=== PATIENT | male | born 1985 | race Caucasian/White ===

== ENCOUNTER 2016-08-13 06:37 | Emergency (ER) | payer OTHER | END 2016-08-13 08:58 | disposition home or self-care (01) | LOC: ER1 06:37 | DX: L23.9 Allergic contact dermatitis, unspecified cause (principal); F17.200 Nicotine dependence, unspecified, uncomplicated | CPT/HCPCS: 96372; 99282; J1885 ==

== ENCOUNTER 2021-01-30 17:01 | Emergency (ER) | payer OTHER ==
[~2021-01-30 17:01] MED LIST: CLEOCIN HCL300 MG PO; CORTIZONE-1057 GM TP; VIBRAMYCIN100 MG PO
== END 2021-01-30 18:30 | disposition home or self-care (01) ==
LOC: ER1 17:01
DX: J06.9 Acute upper respiratory infection, unspecified (principal); F17.210 Nicotine dependence, cigarettes, uncomplicated; Z20.822 Contact with and (suspected) exposure to COVID-19
CPT/HCPCS: 87081; 87880; 99284; U0003

== ENCOUNTER 2021-02-01 11:05 | Emergency (ER) | payer OTHER ==
[2021-02-01 12:21] LABS: HEMOGLOBIN 14.2 gm/dl (14.0-17.5); RED BLOOD COUNT 5.02 M/UL (4.20-5.50); WHITE BLOOD COUNT 18.4 K/UL (4.5-11.0)
[2021-02-01 12:52] LABS: BUN/CREATININE RATIO 12 (0-10)
== END 2021-02-01 16:02 | disposition home or self-care (01) ==
LOC: ER1 11:05
DX: J06.9 Acute upper respiratory infection, unspecified (principal); F17.210 Nicotine dependence, cigarettes, uncomplicated; Z20.822 Contact with and (suspected) exposure to COVID-19
CPT/HCPCS: 71045; 80053; 82550; 82553; 83874; 84484; 85025; 87081; 87880; 93005; 96374; 96375; 99284; J1885; J2405; U0002

== ENCOUNTER 2021-08-24 01:38 | Emergency (ER) | payer OTHER | END 2021-08-24 03:19 | disposition left against medical advice (07) | LOC: ER1 01:38 | DX: Z53.21 Procedure and treatment not carried out due to patient leaving prior to being seen by health care provider (principal) ==